=== PATIENT | female | born 1990 | race Caucasian/White ===

== ENCOUNTER 2024-03-23 00:24 | Emergency (ER) | payer SELFPAY ==
[2024-03-23 00:29] VITALS: BP 130/80; PULSE 72; O2SAT 96
[2024-03-23 00:31] VITALS: BP 112/55; PULSE 69; RESP 18; TEMP 36.6; O2SAT 100; BMI 30.7
--- NOTE | 2024-03-23 00:39 | PC.NURSE ---
During search, pt provided paraphernalia to this RN to turn in as used. Disposed of in sharps.
--- NOTE | 2024-03-23 00:41 | PC.NURSE ---
Search completed by Security, belongings in
--- NOTE | 2024-03-23 00:51 | MHC.EDTECH ---
Patient came in by ambulance,security called to assist with changeover,patientchanged into hospital attire,all belongings in [facility] ROOM,
--- NOTE | 2024-03-23 01:02 | ED.OVERDOSE ---
HPI - Overdose General Chief Complaint: Overdose Stated Complaint: OD,NARCAN GIVEN BY [facility] PER EMS Time Seen by Provider: 03/23/24 01:01 Source: patient, EMS and RN notes reviewed Mode of arrival: EMS Limitations: no limitations History of Present Illness ED Provider: Ivy Chris NP HPI Narrative: Patient is a 33-year-old female with history of opioid use disorder presenting to the emergency department via EMS after receiving Narcan when being found unresponsive by bystander. Patient states that she typically uses 5-10 bags of heroin daily, admits to using 5 bags prior to arrival today. States this was her normal use and not a suicide attempt. Denies any physical complaints. Not interested in detox at this time. MD complaint: accidental overdose Onset (ago): minute(s) Context: Accidental Overdose: wanted to get high Treatments Prior to Arrival: narcan Related Data Allergies Allergy/AdvReac Type Severity Reaction Status Date / Time divalproex sodium Allergy Rash Verified 03/23/24 00:33 [From Depakote] escitalopram [From Lexapro] Allergy Rash Verified 03/23/24 00:33 Review of Systems Review of Systems: As per HPI. Yes all other systems are reviewed and are negative Constitutional: Constitutional: Reports as per HPI PMF Social History Social History Smoked in Last 30 Days: Yes Substance Use Type: Heroin Advance Directives: No Advance Directives Information Provided: Yes Do you have a plan to hurt others: No Plan Patient : No Physical Exam Vital Signs: Vital Signs: Last Vital Signs Temp 97.9 F 03/23/24 00:31 Pulse 69 03/23/24 00:31 Resp 18 03/23/24 00:31 BP 112/55 L 03/23/24 00:31 Pulse Ox 100 03/23/24 00:31 O2 Del Method Room Air 03/23/24 00:31 BMI result Body Mass Index 30.7 Vital signs have been reviewed and appear to be correct. Blood pressure normal. Heart rate normal. Respiratory rate normal. Temperature normal. Oxygen saturation normal. Const: General: cooperative, healthy appearing and no acute distress Orientation/consciousness: oriented to person, oriented to place, oriented to time and patient oriented x3 Limitations: no limitations HEENT: Head: Yes normocephalic and Yes atraumatic Ears: external ears normal General nose exam: Normal external nose present Face and sinus: Yes face symmetric Mouth: oropharynx normal and moist mucous membranes Throat: Yes uvula midline Eyes: Pupils: Equal, round and reactive pupils present Neck: Neck: Yes normal visual inspection and Yes supple Resp: Effort & Inspection: normal respiratory effort and able to speak in complete sentences Auscultation: clear to auscultation bilaterally Cardio: Rate: regular rate Rhythm: regular rhythm Heart sounds: S1 normal heart sound present and S2 normal heart sound present GI: Palpation (GI): Soft to palpation and nontender Auscultation: normoactive bowel sounds : General: Yes no CVA tenderness Back/Spine/Pelvis: Back: no CVA tenderness Skin: General skin exam: elasticity normal and turgor normal Neuro: General: oriented to person, oriented to place, oriented to time, patient oriented x3, moves all extremities, no focal motor deficits and CN's II-XI intact bilaterally Cranial nerves: Yes Equal, round and reactive pupils present Cognition (Neuro): normal cognition Extrem: General: Yes full ROM, Yes no pedal edema and Yes no calf tenderness Psych: Mental Status: mental status grossly normal Affect: normal affect Thought process: Normal thought process present Medical Decision Making Medical Decision Making MDM Narrative: Patient is a 33-year-old female with history of opioid use disorder presenting to the emergency department via EMS after receiving Narcan when being found unresponsive by bystander. On exam patient is awake, A+Ox3, VS WNL, afebrile, normal neurological exam without focal deficits, physical exam findings as above. Given reported symptoms and physical exam findings, initial differential includes opioid use disorder, accidental overdose. Patient monitored in the ED for two hours and able to maintain awake and alert state throughout that time. Declining assistance from addiction medicine team. Will discharge home with Narcan. Return precautions discussed and patient advised she can return to the ED at any time if she is seeking assistance with detox. Differential Diagnosis Differential Diagnoses: The differential diagnosis associated with the presentation includes As per MDM. External Record Review External record reviewed: Inpatient record, Office record and Outpatient record Prescription Management I considered prescription management with: Other Discharge Plan Discharge Clinical Impression: Drug overdose, Opioid use disorder Patient Disposition: Home, Self-Care Instructions: Naloxone (Into the nose), Adult Overdose (ED), Narcotic Use Disorder (ED) Additional Instructions: You were evaluated in the emergency department today after being found unresponsive after using heroin and you were given naloxone (Narcan ). You are being given take home naloxone which you should keep on you at all times. Return to the emergency department if you would like assistance to stop using drugs. Print Language: Slovak
[2024-03-23 02:41] VITALS: BP 126/56; PULSE 72; RESP 18; TEMP 36.7; O2SAT 100
[2024-03-23] MEDS: Naloxone HCl Nasal TAKE HOME 4 MG SPRAY 8 MG NOSTRILALT (02:41)
== END 2024-03-23 02:42 | disposition home or self-care (01) ==
PROVIDERS: Emergency Provider Emergency Medicine Emergency Medical Services; PCP Internal Medicine
DX: T40.2X1A Poisoning by other opioids, accidental (unintentional), initial encounter (principal); R40.4 Transient alteration of awareness; F19.90 Other psychoactive substance use, unspecified, uncomplicated; Y92.9 Unspecified place or not applicable
CPT/HCPCS: 99284